=== PATIENT | female | born 1940 | race Caucasian/White ===

== ENCOUNTER 2024-12-19 15:33 | Emergency (ER) | payer MEDICARE, BC ==
[2024-12-19 16:30] LABS: HEMATOCRIT 37.7 % (37.0-47.0); HEMOGLOBIN 13.3 g/dL (11.5-16.5); MEAN CORPUSCULAR HEMOGLOBIN 31.7 pg (27.0-32.0); MEAN CORPUSCULAR HGB CONC 35.3 g/dL (31.0-35.0); MEAN CORPUSCULAR VOLUME 90 fL (76-96); MEAN PLATELET VOLUME 11.5 fL (6.0-10.0); PLATELET COUNT,PLT 133 K/uL (150-500); RED BLOOD CELL COUNT 4.19 M/uL (3.80-5.80); RED CELL DISTRIBUTION WIDTH 12.7 % (11.0-16.0); WHITE BLOOD CELL COUNT,WBC 13.3 K/uL (4.0-11.0)
[2024-12-19 16:47] LABS: ANION GAP 10.8 mmol/L (5.0-15.0); BUN/CREATININE RATIO 12.6 (6-25); CALCIUM 8.8 mg/dL (8.5-10.1); CARBON DIOXIDE,CO2 29.3 mmol/L (21.0-32.0); CREATININE 1.19 mg/dL (0.55-1.02); EST CRCL DRUG DOSING (CG) 24.88 mL/min; POTASSIUM,K 4.1 mmol/L (3.5-5.1)
[2024-12-19 16:50] LABS: APPEARANCE,URINE CLEAR (CLEAR); BILIRUBIN,URINE NEGATIVE (NEGATIVE); COLOR,URINE YELLOW; GLUCOSE,URINE NEGATIVE (NEGATIVE); KETONES,URINE TRACE mg/dL (NEGATIVE); LEUKOCYTE ESTERASE,URINE NEGATIVE (NEGATIVE); NITRITE,URINE NEGATIVE (NEGATIVE); OCCULT BLOOD,URINE NEGATIVE (NEGATIVE); PROTEIN,URINE 30 mg/dL (NEGATIVE); UROBILINOGEN,URINE 0.2 E.U./dL (0.2-1.0)
[2024-12-19 16:54] LABS: RBC,URINE 0-5 /HPF; SQUAMOUS EPITHELIAL CELLS,UR OCCASIONAL /HPF; WBC,URINE 0-5 /HPF
[2024-12-19 17:03] LABS: GIANT PLATELETS OCCASIONAL; PLATELET COUNT ESTIMATE DECREASED
[2024-12-19] MEDS ORDERED: Sulfamethoxazole/Trimethoprim 800-160 MG Tab ONE (21:00)
== END 2024-12-19 21:10 | disposition home or self-care (01) ==
LOC: LB.ED 15:33
DX: S72.111A Displaced fracture of greater trochanter of right femur, initial encounter for closed fracture (principal); N30.00 Acute cystitis without hematuria; Z88.0 Allergy status to penicillin; Z79.899 Other long term (current) drug therapy; W19.XXXA Unspecified fall, initial encounter
CPT/HCPCS: 36415; 70450; 73502; 73700; 80048; 81001; 85025; 99284; A9270